=== PATIENT | female | born 1975 | race Caucasian/White ===

== ENCOUNTER 2021-04-17 14:33 | Emergency (ER) | payer OTHER ==
[2021-04-17 14:43] VITALS: BP 131/78; PULSE 72; RESP 18; TEMP 97.8
--- NOTE | 2021-04-17 15:27 | ED ---
General Adult HPI - General Chief complaint: Psychiatric Symptoms Stated complaint: mental health Time Seen by Provider: 04/17/21 14:50 Source: patient Mode of arrival: ambulatory Limitations: no limitations - History of Present Illness Initial comments: Is a 45-year-old female to history of anxiety and depression who presents emergency department for worsening stress, anxiety, depression. She states that she's had a lot of stressors in her life including going to [facility], and multiple relationship issues at home. She states that everything seems to be coming together causing her to be very stressed. She's been having worsening anxiety and depression. She does admit to hearing voices that are telling her that she is worthless and seemed to be making her feel worse. She denies any suicidal or homicidal ideations however. She is to be on medications including Prozac and Zyprexa however has not been taking these are she doesn't really follow up with anybody regarding her mental health. She came in today because she felt like she was in need of a psychiatric evaluation. Of note the patient does admit to methamphetamine use and states that her last use was a few days ago. Otherwise no drinking or other drug use. - Related Data Home Medications Medication Instructions Recorded Confirmed ALPRAZolam [Xanax] 0.25 mg PO TID PRN 03/03/15 07/28/15 ARIPiprazole [Abilify] 10 mg PO HS 03/03/15 07/28/15 Cyclobenzaprine [Flexeril] 10 mg PO TID 03/03/15 07/28/15 DULoxetine HCL 60 mg PO HS 03/03/15 07/28/15 HYDROcodone/APAP 7.5-325MG [[place] 1 each PO Q6HR PRN 03/03/15 07/28/15 7.5-325] Previous Rx's Medication Instructions Recorded Nicotine 14Mg/24Hr Patch [Habitrol] 1 patch TRANSDERM DAILY #42 patch 03/03/15 Allergies Allergy/AdvReac Type Severity Reaction Status Date / Time bee pollen Allergy Anaphylaxis Verified 04/17/21 14:43 bee venom protein (honey bee) Allergy Anaphylaxis Verified 04/17/21 14:43 Review of Systems ROS Statement: Those systems with pertinent positive or pertinent negative responses have been documented in the HPI. ROS Other: All systems not noted in ROS Statement are negative. Past Medical History Past Medical History: Hypertension Additional Past Medical History / Comment(s): chronic back pain, migraines, anxiety, depression History of Any Multi-Drug Resistant Organisms: None Reported Past Surgical History: Section, Cholecystectomy Additional Past Surgical History / Comment(s): C-SECT X2,ESSURE CONTROL- WORKED ONLY ON 1 SIDE Past Anesthesia/Blood Transfusion Reactions: No Reported Reaction Past Psychological History: Anxiety, Depression Smoking Status: Current every day smoker Past Alcohol Use History: None Reported Past Drug Use History: Methamphetamine General Exam - General Exam Comments Initial Comments: Constitutional: [Awake alert] [Appears comfortable] Head: [Normocephalic atraumatic] Eyes: [no conjunctival injection] [No scleral icterus] [EOMI] Neck: [No JVD] [Supple] Heart: [Regular rate rhythm] [normal S1-S2] [no murmurs] Lungs: [Clear to auscultation bilaterally] [No wheezing] [No rales] Abdomen: [Soft] [nondistended] [nontender] Extremities: [Non edematous] [DP pulses intact] [Radial pulses intact] Neuro: [A&Ox3] [No focal neurologic deficits] Psych: Depressed, anxious, no active suicidal ideation Limitations: no limitations Course Vital Signs 04/17/21 14:38 Temperature 97.8 F Pulse Rate 72 Respiratory 18 Rate Blood Pressure 131/78 O2 Sat by Pulse 97 Oximetry Medical Decision Making - Medical Decision Making Is a 45-year-old female who presents emergency department for depression and anxiety. The patient had no suicidal ideation. She was evaluated by mental health nurse here who gave her resources and gave her a safety plan for home. She advised her to follow up with outpatient mental health resources. The patient was given Ativan prior to leaving for her anxiety and she will be taken home by family. Told to return if she had any worsening or changing symptoms - Lab Data Lab Results 04/17/21 04/17/21 Range/Units 15:34 15:34 Urine HCG, Qual Not Detected (Not Detectd) Urine Opiates Screen Not Detected (NotDetected) Ur Oxycodone Screen Not Detected (NotDetected) Urine Methadone Screen Not Detected (NotDetected) Ur Propoxyphene Screen Not Detected (NotDetected) Ur Barbiturates Screen Not Detected (NotDetected) U Tricyclic Antidepress Not Detected (NotDetected) Ur Phencyclidine Scrn Not Detected (NotDetected) Ur Amphetamines Screen Not Detected (NotDetected) U Methamphetamines Scrn Detected H (NotDetected) U Benzodiazepines Scrn Not Detected (NotDetected) Urine Cocaine Screen Not Detected (NotDetected) U Marijuana (THC) Screen Detected H (NotDetected) Disposition Clinical Impression: Depression Disposition: HOME SELF-CARE Condition: Stable Instructions (If sedation given, give patient instructions): Depression (ED) Is patient prescribed a controlled substance at d/c from ED?: No Referrals: Primo Ferguson DO [Primary Care Provider] - 1-2 days
[2021-04-17 16:04] LABS: Amphetamine Screen,Urine Not Detected (NotDetected); Barbiturate Screen,Urine Not Detected (NotDetected); Benzodiazepines Screen,Urine Not Detected (NotDetected); Cocaine Screen,Urine Not Detected (NotDetected); Methadone Screen, Urine Not Detected (NotDetected); Opiate Screen,Urine Not Detected (NotDetected); Oxycodone Screen, Urine Not Detected (NotDetected); Phencyclidine Screen,Urine Not Detected (NotDetected); Tricyclic Antidepressant,Urine Not Detected (NotDetected); Urn Cannabinoid Scrn Detected (NotDetected)
[2021-04-17] MEDS ORDERED: LORazepam 1 MG TAB PO STA (17:27)
== END 2021-04-17 17:49 | disposition home or self-care (01) ==
LOC: EC 14:33
DX: F32.9 Major depressive disorder, single episode, unspecified (principal); F41.9 Anxiety disorder, unspecified; I10 Essential (primary) hypertension; F17.200 Nicotine dependence, unspecified, uncomplicated; Z91.030 Bee allergy status; Z79.899 Other long term (current) drug therapy
CPT/HCPCS: 80306; 81025; 99284

== ENCOUNTER 2021-04-27 20:05 | Emergency (ER) | payer OTHER ==
[2021-04-27 21:04] VITALS: TEMP 97.9
--- NOTE | 2021-04-27 22:19 | ED ---
General Adult HPI - General Source: patient, EMS Mode of arrival: EMS Limitations: no limitations <Domo Mckay - Last Filed: 04/27/21 23:53> <Marah Covarrubias - Last Filed: 04/28/21 00:59> <Terry Young - Last Filed: 04/28/21 01:12> - General Chief complaint: Psychiatric Symptoms Stated complaint: Mental Health Time Seen by Provider: 04/27/21 20:40 - History of Present Illness Initial comments: 45-year-old female with a past medical history of hypertension, chronic back pain, anxiety, depression presents to the emergency room for a chief complaint of depression. Patient reports that she recently caught her boyfriend cheating on her with her best friend. States that she found him in her bed. Patient reports that she is having trouble coping with this and has been more depressed lately. She denies any suicidal or homicidal thoughts. Patient took 1 trazodone at home to help with this. Patient denies taking any other medications.Patient has no other complaints at this time including shortness of breath, chest pain, abdominal pain, nausea or vomiting, headache, or visual changes. (Domo Mckay) - Related Data Home Medications Medication Instructions Recorded Confirmed ALPRAZolam [Xanax] 0.25 mg PO TID PRN 03/03/15 07/28/15 ARIPiprazole [Abilify] 10 mg PO HS 03/03/15 07/28/15 Cyclobenzaprine [Flexeril] 10 mg PO TID 03/03/15 07/28/15 DULoxetine HCL 60 mg PO HS 03/03/15 07/28/15 HYDROcodone/APAP 7.5-325MG [[place] 1 each PO Q6HR PRN 03/03/15 07/28/15 7.5-325] Previous Rx's Medication Instructions Recorded Nicotine 14Mg/24Hr Patch [Habitrol] 1 patch TRANSDERM DAILY #42 patch 03/03/15 Allergies Allergy/AdvReac Type Severity Reaction Status Date / Time bee pollen Allergy Anaphylaxis Verified 04/17/21 14:43 bee venom protein (honey bee) Allergy Anaphylaxis Verified 04/17/21 14:43 Review of Systems ROS Other: All systems not noted in ROS Statement are negative. <Domo Mckay - Last Filed: 04/27/21 23:53> ROS Other: All systems not noted in ROS Statement are negative. <Marah Covarrubias - Last Filed: 04/28/21 00:59> ROS Other: All systems not noted in ROS Statement are negative. <Terry Young - Last Filed: 04/28/21 01:12> ROS Statement: Those systems with pertinent positive or pertinent negative responses have been documented in the HPI. Past Medical History Past Medical History: Hypertension Additional Past Medical History / Comment(s): chronic back pain, migraines, anxiety, depression History of Any Multi-Drug Resistant Organisms: None Reported Past Surgical History: Section, Cholecystectomy Additional Past Surgical History / Comment(s): C-SECT X2,ESSURE CONTROL- WORKED ONLY ON 1 SIDE Past Anesthesia/Blood Transfusion Reactions: No Reported Reaction Past Psychological History: Anxiety, Depression Smoking Status: Current every day smoker Past Alcohol Use History: None Reported Past Drug Use History: Methamphetamine <Domo Mckay - Last Filed: 04/27/21 23:53> General Exam Limitations: no limitations General appearance: alert, in no apparent distress Head exam: Present: atraumatic, normocephalic, normal inspection Eye exam: Present: normal appearance ENT exam: Present: normal exam, mucous membranes moist Neck exam: Present: normal inspection. Absent: tenderness, meningismus, lymphadenopathy Respiratory exam: Present: normal lung sounds bilaterally. Absent: respiratory distress, wheezes, rales, rhonchi, stridor Cardiovascular Exam: Present: regular rate, normal rhythm, normal heart sounds. Absent: systolic murmur, diastolic murmur, rubs, gallop, clicks GI/Abdominal exam: Present: soft, normal bowel sounds. Absent: distended, tenderness, guarding, rebound, rigid Neurological exam: Absent: alert, oriented X3 Psychiatric exam: Present: normal affect, normal mood <Domo Mckay - Last Filed: 04/27/21 23:53> Course Vital Signs 04/27/21 20:57 Temperature 97.9 F Pulse Rate 94 Respiratory 18 Rate Blood Pressure 112/76 O2 Sat by Pulse 100 Oximetry Medical Decision Making <Domo Mckay - Last Filed: 04/27/21 23:53> <Terry Young - Last Filed: 04/28/21 01:12> - Medical Decision Making Patient was medically cleared for psychiatric eval. EPS notified. Care signed out to Marah at 0000 pending EPS eval (Domo Mckay) 45 female seen and evaluated by EPS, patient deemed stable for discharge home (Terry Young) Disposition <Domo Mckay - Last Filed: 04/27/21 23:53> Is patient prescribed a controlled substance at d/c from ED?: No Time of Disposition: 01:00 <Marah Covarrubias - Last Filed: 04/28/21 00:59> <Terry Young - Last Filed: 04/28/21 01:12> Clinical Impression: Acute stress reaction, Suicidal ideation Disposition: HOME SELF-CARE Condition: Good Instructions (If sedation given, give patient instructions): Stress (ED), Suicide Prevention (ED) Additional Instructions: Follow-up with outpatient mental services as discussed. Return to the emergency department immediately for any new, worsening, or concerning symptoms. Referrals: Primo Ferguson DO [Primary Care Provider] - 1-2 days
[2021-04-28] MEDS ORDERED: LORazepam 1 MG TAB PO STA (00:59)
[2021-04-28 01:20] VITALS: BP 126/80; PULSE 100; RESP 14
== END 2021-04-28 01:40 | disposition home or self-care (01) ==
LOC: EC 20:05
DX: F43.0 Acute stress reaction (principal); R45.851 Suicidal ideations; F32.9 Major depressive disorder, single episode, unspecified; I10 Essential (primary) hypertension; F41.9 Anxiety disorder, unspecified; F15.90 Other stimulant use, unspecified, uncomplicated; F17.200 Nicotine dependence, unspecified, uncomplicated; G43.909 Migraine, unspecified, not intractable, without status migrainosus
CPT/HCPCS: 99283

== ENCOUNTER 2021-07-31 13:09 | Emergency (ER) | payer OTHER ==
[2021-07-31 13:56] VITALS: BP 172/85; PULSE 93; RESP 18; TEMP 97.8
[2021-07-31] MEDS ORDERED: DIPH,PERTUS(ACELL)TETVAC-LF 0.5 ML VIAL IM ONE (14:54)
[2021-07-31] MEDS ORDERED: TOPICAL SKIN ADHESIVE 1 EACH AMP TOPICAL ONE (14:56)
[2021-07-31] MEDS ORDERED: ACETAMINOPHEN TAB 325 MG TAB PO STA (15:00)
--- NOTE | 2021-07-31 15:00 | ED ---
General Adult HPI - General Chief complaint: Wound/Laceration Stated complaint: lac between eyes Time Seen by Provider: 07/31/21 14:52 Source: patient, RN notes reviewed Mode of arrival: ambulatory Limitations: no limitations - History of Present Illness Initial comments: This is a well-appearing 46-year-old white female that presents to the emergency room with complaints of laceration to her forehead [place] the dock and hitting her head. She denies any loss of consciousness. She states the wound did bleed. Bleeding is controlled at this time. She states her tetanus shot is not up-to-date. She denies any drug use but does state that she has a smoker. -: hour(s) (2) Location: face (forehead) Severity scale (1-10): 5 Quality: aching Consistency: constant Worsens with: other (palpation) Associated Symptoms: denies other symptoms Treatments Prior to Arrival: none - Related Data Home Medications Medication Instructions Recorded Confirmed ALPRAZolam [Xanax] 0.25 mg PO TID PRN 03/03/15 07/28/15 ARIPiprazole [Abilify] 10 mg PO HS 03/03/15 07/28/15 Cyclobenzaprine [Flexeril] 10 mg PO TID 03/03/15 07/28/15 DULoxetine HCL 60 mg PO HS 03/03/15 07/28/15 HYDROcodone/APAP 7.5-325MG [[place] 1 each PO Q6HR PRN 03/03/15 07/28/15 7.5-325] Previous Rx's Medication Instructions Recorded Nicotine 14Mg/24Hr Patch [Habitrol] 1 patch TRANSDERM DAILY #42 patch 03/03/15 Cephalexin [Keflex] 500 mg PO Q6HR 7 Days #28 cap 07/31/21 Allergies Allergy/AdvReac Type Severity Reaction Status Date / Time bee pollen Allergy Anaphylaxis Verified 07/31/21 13:56 bee venom protein (honey bee) Allergy Anaphylaxis Verified 07/31/21 13:56 Review of Systems ROS Statement: Those systems with pertinent positive or pertinent negative responses have been documented in the HPI. ROS Other: All systems not noted in ROS Statement are negative. Past Medical History Past Medical History: Hypertension Additional Past Medical History / Comment(s): chronic back pain, migraines, anxiety, depression History of Any Multi-Drug Resistant Organisms: None Reported Past Surgical History: Section, Cholecystectomy Additional Past Surgical History / Comment(s): C-SECT X2,ESSURE CONTROL- WORKED ONLY ON 1 SIDE Past Anesthesia/Blood Transfusion Reactions: No Reported Reaction Past Psychological History: Anxiety, Depression, Schizophrenia Smoking Status: Current every day smoker Past Alcohol Use History: Heavy Past Drug Use History: Methamphetamine General Exam Limitations: no limitations General appearance: alert, in no apparent distress Head exam: Present: normocephalic, normal inspection, other (Y shaped Laceration to the center of her forehead ) Eye exam: Present: normal appearance, PERRL, EOMI. Absent: scleral icterus, conjunctival injection, periorbital swelling ENT exam: Present: normal exam, mucous membranes moist Neck exam: Present: normal inspection, full ROM. Absent: tenderness, meningismus, lymphadenopathy Respiratory exam: Present: normal lung sounds bilaterally. Absent: respiratory distress, wheezes, rales, rhonchi, stridor Cardiovascular Exam: Present: regular rate, normal rhythm, normal heart sounds. Absent: systolic murmur, diastolic murmur, rubs, gallop, clicks GI/Abdominal exam: Present: soft, normal bowel sounds. Absent: distended, tenderness, guarding, rebound, rigid Neurological exam: Present: alert, oriented X3, CN II-XII intact Expanded Patient oriented to: Present: person, place, time Speech: Present: fluid speech Eye Response: (4) open spontaneously Motor Response: (6) obeys commands Verbal Response: (5) oriented Terrence Total: 15 Psychiatric exam: Present: normal affect, normal mood Skin exam: Present: warm, dry, intact, normal color. Absent: rash, cyanosis, diaphoretic, petechiae, pallor Course Vital Signs 07/31/21 13:53 Temperature 97.8 F Pulse Rate 93 Respiratory 18 Rate Blood Pressure 172/85 O2 Sat by Pulse 99 Oximetry Medical Decision Making - Medical Decision Making Wound was well approximated and closed with dermal glue. Patient's tetanus shot was updated at this visit. She was given a prescription for Keflex for prophylaxis. Dr. Blanco at bedside to evaluate patient. Patient is directed to follow up with her primary care doctor in 1 week and return if pain or worsening symptoms including signs of infection. Disposition Clinical Impression: Laceration Disposition: HOME SELF-CARE Condition: Good Instructions (If sedation given, give patient instructions): Laceration (ED), Skin Adhesive Care (ED) Additional Instructions: Keep wound clean and dry. Do not put any lotions or ointments on site. Follow- up with your primary care doctor in 1 week. Return to the emergency room with any new or worsening symptoms including signs of infection, fever, drainage or pain. Prescriptions: Cephalexin [Keflex] 500 mg PO Q6HR 7 Days #28 cap Is patient prescribed a controlled substance at d/c from ED?: No Referrals: Primo Ferguson DO [Primary Care Provider] - 1-2 days Time of Disposition: 15:32
== END 2021-07-31 15:58 | disposition home or self-care (01) ==
LOC: EC 13:09
DX: S01.81XA Laceration without foreign body of other part of head, initial encounter (principal); Z23 Encounter for immunization; I10 Essential (primary) hypertension; F17.200 Nicotine dependence, unspecified, uncomplicated; Z90.49 Acquired absence of other specified parts of digestive tract; F41.9 Anxiety disorder, unspecified; F32.9 Major depressive disorder, single episode, unspecified; F15.90 Other stimulant use, unspecified, uncomplicated; W18.09XA Striking against other object with subsequent fall, initial encounter; Y92.62 Dock or shipyard as the place of occurrence of the external cause
CPT/HCPCS: 90471; 90715; 99283

== ENCOUNTER 2022-03-08 03:13 | Emergency (ER) | payer OTHER ==
[2022-03-08 03:17] VITALS: TEMP 98.8
[2022-03-08] MEDS ORDERED: IBUPROFEN 600 MG TAB PO STA (03:42)
[2022-03-08] MEDS ORDERED: SULFAMETHOX-TMP 800-160MG 1 EACH TAB PO STA (03:43)
--- NOTE | 2022-03-08 03:47 | ED ---
General Adult HPI - General Source: patient, police Mode of arrival: ambulatory - History of Present Illness -: days(s) Location: left, right, lower extremity Radiation: non-radiation Quality: aching Consistency: constant Improves with: none Worsens with: none Associated Symptoms: denies other symptoms <Moo Garner - Last Filed: 03/08/22 03:44> <Harjeet Avendano Flora - Last Filed: 03/08/22 08:04> - General Chief complaint: Medical Clearance Stated complaint: residential clearance Time Seen by Provider: 03/08/22 03:34 - History of Present Illness Initial comments: This patient is a 46-year-old woman who presents to have evaluation for bilateral lower leg and foot swelling. Patient states is been going on and has been getting progressively worse over the past few days. The patient has not noted fever or chills. No chest pain or dyspnea. No change in urination. She denies previous history of edema. (Moo Garner) - Related Data Home Medications Medication Instructions Recorded Confirmed ALPRAZolam [Xanax] 0.25 mg PO TID PRN 03/03/15 07/28/15 ARIPiprazole [Abilify] 10 mg PO HS 03/03/15 07/28/15 Cyclobenzaprine [Flexeril] 10 mg PO TID 03/03/15 07/28/15 DULoxetine HCL 60 mg PO HS 03/03/15 07/28/15 HYDROcodone/APAP 7.5-325MG [[place] 1 each PO Q6HR PRN 03/03/15 07/28/15 7.5-325] Previous Rx's Medication Instructions Recorded Nicotine 14Mg/24Hr Patch [Habitrol] 1 patch TRANSDERM DAILY #42 patch 03/03/15 Cephalexin [Keflex] 500 mg PO Q6HR 7 Days #28 cap 07/31/21 Cephalexin [Keflex] 500 mg PO QID 10 Days #40 cap 03/08/22 Sulfamethox-Tmp 800-160Mg [Bactrim 1 tab PO Q12HR #28 tab 03/08/22 DS 800-160 mg] Allergies Allergy/AdvReac Type Severity Reaction Status Date / Time bee pollen Allergy Anaphylaxis Verified 03/08/22 03:17 bee venom protein (honey bee) Allergy Anaphylaxis Verified 03/08/22 03:17 Review of Systems ROS Other: All systems not noted in ROS Statement are negative. Constitutional: Denies: fever, chills, weakness Respiratory: Denies: cough, dyspnea Cardiovascular: Reports: edema. Denies: chest pain, palpitations, orthopnea Gastrointestinal: Denies: abdominal pain Musculoskeletal: Denies: back pain Skin: Denies: rash Neurological: Denies: headache, weakness, numbness <Moo Garner - Last Filed: 03/08/22 03:44> ROS Other: All systems not noted in ROS Statement are negative. <Harjeet Avendano Floar - Last Filed: 03/08/22 08:04> ROS Statement: Those systems with pertinent positive or pertinent negative responses have been documented in the HPI. Past Medical History Past Medical History: Hypertension Additional Past Medical History / Comment(s): chronic back pain, migraines, anxiety, depression History of Any Multi-Drug Resistant Organisms: None Reported Past Surgical History: Section, Cholecystectomy Additional Past Surgical History / Comment(s): C-SECT X2,ESSURE CONTROL-WORKED ONLY ON 1 SIDE Past Anesthesia/Blood Transfusion Reactions: No Reported Reaction Past Psychological History: Anxiety, Depression, Schizophrenia Smoking Status: Current every day smoker Past Alcohol Use History: Heavy Past Drug Use History: Methamphetamine <Moo Garner - Last Filed: 03/08/22 03:44> General Exam General appearance: alert, in no apparent distress Head exam: Present: atraumatic, normocephalic Eye exam: Present: normal appearance. Absent: scleral icterus, conjunctival injection Respiratory exam: Present: normal lung sounds bilaterally. Absent: respiratory distress, wheezes, rales, rhonchi, stridor Cardiovascular Exam: Present: regular rate, normal rhythm, normal heart sounds. Absent: systolic murmur, diastolic murmur, rubs, gallop GI/Abdominal exam: Present: soft. Absent: distended, tenderness, guarding, rebound Extremities exam: Present: normal capillary refill, pedal edema. Absent: normal inspection, calf tenderness Neurological exam: Absent: motor sensory deficit Skin exam: Present: warm, dry, intact, normal color, erythema <Moo Garner - Last Filed: 03/08/22 03:44> Course Vital Signs 03/08/22 03/08/22 03:15 06:16 Temperature 98.8 F Pulse Rate 95 84 Respiratory 19 16 Rate Blood Pressure 154/86 132/76 O2 Sat by Pulse 100 98 Oximetry Medical Decision Making - Lab Data Result diagrams: 03/08/22 03:48 03/08/22 03:48 <Harjeet Avendano - Last Filed: 03/08/22 08:04> - Medical Decision Making Sign out on this patient awaiting ultrasound report for bilateral lower extremity edema. Patient has erythema and edema to the bilateral lower extremities. Ultrasound is performed which is negative for DVT, shows a superficial thrombus in the right popliteal area. Patient is afebrile. She does have a leukocytosis. I feel this patient is appropriate for oral antibiotics at this time. She's given strict return parameters. (Harjeet Avendano) - Lab Data Lab Results 03/08/22 03/08/22 03/08/22 Range/Units 03:48 03:48 03:48 WBC 8.3 (3.8-10.6) k/uL RBC 4.70 (3.80-5.40) m/uL Hgb 10.8 L (11.4-16.0) gm/dL Hct 35.4 (34.0-46.0) % MCV 75.3 L (80.0-100.0) fL MCH 23.0 L (25.0-35.0) pg MCHC 30.5 L (31.0-37.0) g/dL RDW 16.2 H (11.5-15.5) % Plt Count 273 (150-450) k/uL MPV 9.3 Neutrophils % 72 % Lymphocytes % 17 % Monocytes % 8 % Eosinophils % 1 % Basophils % 1 % Neutrophils # 6.0 (1.3-7.7) k/uL Lymphocytes # 1.4 (1.0-4.8) k/uL Monocytes # 0.6 (0-1.0) k/uL Eosinophils # 0.1 (0-0.7) k/uL Basophils # 0.1 (0-0.2) k/uL Hypochromasia Slight Anisocytosis Slight Microcytosis Slight D-Dimer 3.19 H (<0.60) mg/L FEU Sodium 131 L (137-145) mmol/L Potassium 3.8 (3.5-5.1) mmol/L Chloride 97 L (98-107) mmol/L Carbon Dioxide 27 (22-30) mmol/L Anion Gap 7 mmol/L BUN 10 (7-17) mg/dL Creatinine 0.53 (0.52-1.04) mg/dL Est GFR (CKD-EPI)AfAm >90 (>60 ml/min/1.73 sqM) Est GFR (CKD-EPI)NonAf >90 (>60 ml/min/1.73 sqM) Glucose 104 H (74-99) mg/dL Calcium 8.8 (8.4-10.2) mg/dL Total Bilirubin 0.8 (0.2-1.3) mg/dL AST 44 H (14-36) U/L ALT 46 H (4-34) U/L Alkaline Phosphatase 105 (38-126) U/L NT-Pro-B Natriuret Pep pg/mL Total Protein 7.4 (6.3-8.2) g/dL Albumin 3.7 (3.5-5.0) g/dL 03/08/22 Range/Units 03:48 WBC (3.8-10.6) k/uL RBC (3.80-5.40) m/uL Hgb (11.4-16.0) gm/dL Hct (34.0-46.0) % MCV (80.0-100.0) fL MCH (25.0-35.0) pg MCHC (31.0-37.0) g/dL RDW (11.5-15.5) % Plt Count (150-450) k/uL MPV Neutrophils % % Lymphocytes % % Monocytes % % Eosinophils % % Basophils % % Neutrophils # (1.3-7.7) k/uL Lymphocytes # (1.0-4.8) k/uL Monocytes # (0-1.0) k/uL Eosinophils # (0-0.7) k/uL Basophils # (0-0.2) k/uL Hypochromasia Anisocytosis Microcytosis D-Dimer (<0.60) mg/L FEU Sodium (137-145) mmol/L Potassium (3.5-5.1) mmol/L Chloride (98-107) mmol/L Carbon Dioxide (22-30) mmol/L Anion Gap mmol/L BUN (7-17) mg/dL Creatinine (0.52-1.04) mg/dL Est GFR (CKD-EPI)AfAm (>60 ml/min/1.73 sqM) Est GFR (CKD-EPI)NonAf (>60 ml/min/1.73 sqM) Glucose (74-99) mg/dL Calcium (8.4-10.2) mg/dL Total Bilirubin (0.2-1.3) mg/dL AST (14-36) U/L ALT (4-34) U/L Alkaline Phosphatase (38-126) U/L NT-Pro-B Natriuret Pep 55 pg/mL Total Protein (6.3-8.2) g/dL Albumin (3.5-5.0) g/dL Disposition <Moo Garner - Last Filed: 03/08/22 03:44> Is patient prescribed a controlled substance at d/c from ED?: No Time of Disposition: 08:04 <Harjeet Avendano - Last Filed: 03/08/22 08:04> Clinical Impression: Bilateral lower leg cellulitis Disposition: HOME SELF-CARE Condition: Fair Instructions (If sedation given, give patient instructions): Cellulitis (ED) Prescriptions: Sulfamethox-Tmp 800-160Mg [Bactrim DS 800-160 mg] 1 tab PO Q12HR #28 tab Cephalexin [Keflex] 500 mg PO QID 10 Days #40 cap Referrals: Primo Ferguson DO [Primary Care Provider] - 1-2 days
[2022-03-08 04:08] LABS: Anisocytosis Slight; Basophils # (A) 0.1 k/uL (0-0.2); Basophils % (A) 1 %; Eosinophils # (A) 0.1 k/uL (0-0.7); Eosinophils % (A) 1 %; HCT 35.4 % (34.0-46.0); HGB 10.8 gm/dL (11.4-16.0); Hypochromasia Slight; Lymphocytes # (A) 1.4 k/uL (1.0-4.8); Lymphocytes % (A) 17 %; MCHC 30.5 g/dL (31.0-37.0); MCV 75.3 fL (80.0-100.0); Mean Platelet Volume 9.3; Microcytosis Slight; Monocytes # (A) 0.6 k/uL (0-1.0); Monocytes % (A) 8 %; Neutrophils % (A) 72 %; Platelet Count 273 k/uL (150-450); RDW 16.2 % (11.5-15.5); WBC 8.3 k/uL (3.8-10.6)
[2022-03-08 04:26] LABS: ALT 46 U/L (4-34); AST 44 U/L (14-36); African American GFR (CKD) >90 (>60 ml/min/1.73 sqM); Albumin 3.7 g/dL (3.5-5.0); Alkaline Phosphatase 105 U/L (38-126); Anion Gap 7 mmol/L; Blood Urea Nitrogen 10 mg/dL (7-17); Calcium 8.8 mg/dL (8.4-10.2); Carbon Dioxide 27 mmol/L (22-30); Chloride 97 mmol/L (98-107); Glucose 104 mg/dL (74-99); Non-African American GFR(CKD) >90 (>60 ml/min/1.73 sqM); Potassium 3.8 mmol/L (3.5-5.1); Sodium 131 mmol/L (137-145); Total Bilirubin 0.8 mg/dL (0.2-1.3); Total Protein 7.4 g/dL (6.3-8.2)
[2022-03-08 06:17] VITALS: BP 132/76; PULSE 84; RESP 16
--- NOTE | 2022-03-08 07:50 | US ---
EXAMINATION TYPE: US venous doppler duplex LE DATE OF EXAM: 03/08/2022 7:41 AM COMPARISON: NONE CLINICAL HISTORY: Pain, possible DVT. Pain. No hx of DVT. SIDE PERFORMED: Bilateral TECHNIQUE: The lower extremity deep venous system is examined utilizing real time linear array sonog chad with graded compression, doppler sonography and color-flow sonography. VESSELS IMAGED: Common Femoral Vein Deep Femoral Vein Greater Saphenous Vein * Femoral Vein Popliteal Vein Small Saphenous Vein * Proximal Calf Veins (* superficial vessels) Right Leg: No evidence of DVT in veins imaged. Left Leg: Limited due to edema. There appear to be internal echoes within a superficial vein within the anterior popliteal area. This vessel appears to compress incompletely and there is color defect a long vessel coyne. No evidence of DVT at this time within veins imaged. IMPRESSION: 1. Right lower extremity ultrasound negative for deep venous thrombosis. 2. Left lower extremity ultrasound negative for deep venous thrombosis. 3. Note is made of some partial superficial venous thrombosis at the level of the superficial poplite al level.
[2022-03-08] MEDS ORDERED: CEPHALEXIN 500 MG CAP PO STA (08:02)
== END 2022-03-08 08:39 | disposition home or self-care (01) ==
LOC: EC 03:13
DX: L03.116 Cellulitis of left lower limb (principal); L03.115 Cellulitis of right lower limb; I10 Essential (primary) hypertension; F17.200 Nicotine dependence, unspecified, uncomplicated; Z91.030 Bee allergy status
CPT/HCPCS: 36415; 80053; 83880; 85025; 85379; 87040; 93970; 99284

== ENCOUNTER 2022-03-10 14:52 | Emergency (ER) | payer OTHER ==
[2022-03-10 14:56] VITALS: BP 140/81; PULSE 60; RESP 18; TEMP 98.3
[2022-03-10] MEDS ORDERED: LIDOCAINE 1%-EPI 1:100,000 20 ML VIAL SQ STA (17:06)
[2022-03-10] MEDS ORDERED: KETOROLAC 15 MG/ML 1 ML VIAL IM STA ×2 (17:09→19:16)
--- NOTE | 2022-03-10 18:55 | US ---
EXAMINATION TYPE: US transvaginal DATE OF EXAM: 03/10/2022 COMPARISON: None CLINICAL HISTORY: vaginal bleeding. 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 Previous c-sections. TECHNIQUE: Transvaginal (TV). Date of LMP: Unknown EXAM MEASUREMENTS: Uterus: 9.8 x 5.8 x 4.7 cm Endometrial Stripe: 0.5 cm 1. Uterus: Anteverted Csection area seen. 2. Endometrium: wnl 3. Right Ovary: Obscured by overlying bowel gas 4. Left Ovary: Obscured by overlying bowel gas 5. Bilateral Adnexa: wnl 6. Posterior cul-de-sac: no free fluid Cervix-nabothian cysts present. Heterogenous signal is seen near the external cervical os. IMPRESSION: 1. No finding to explain patient's bleeding. 2. Heterogenous area of the cervix near the external cervical os correlate with physical exam.
[2022-03-10] MEDS ORDERED: MORPHINE SULFATE 4 MG/ML SYRINGE IVP STA (19:10)
--- NOTE | 2022-03-10 19:10 | ED ---
Abdominal Pain HPI - General Chief Complaint: Abdominal Pain Stated Complaint: Internal Bleeding Time Seen by Provider: 03/10/22 16:22 Source: patient Mode of arrival: ambulatory Limitations: no limitations - History of Present Illness Initial Comments: Patient is a 46-year-old female who presents to the emergency department with a chief complaint of pelvic pain and vaginal bleeding. Patient resides at [facility] and was caught with a metal pill bottle in the vagina on Sunday. Patient states she took the pill bottle out which resulted in vaginal bleeding and pelvic pain. Patient states she has went through about 6 pads and 6 pairs of care home pants a day. She denies fever, chills, and concern for sexual transmitted infections. Patient states she has normal menstrual cycles monthly. Her last menstruation was mid February. Patient states her menstrual period should occur late next week. Of note, patient was recently evaluated in the emergency department for bilateral lower extremity swelling. At this time ultrasound showed a superficial thrombus in the right popliteal area, no DVT. Patient was diagnosed with cellulitis and discharged with oral Bactrim and Keflex which she states she has been taking as directed. - Related Data Home Medications Medication Instructions Recorded Confirmed Acetaminophen Tab [Tylenol] 650 mg PO Q8H PRN 03/10/22 03/10/22 Cephalexin [Keflex] 1,000 mg PO BID 03/10/22 03/10/22 Dicyclomine [Bentyl] 20 mg PO Q8H PRN 03/10/22 03/10/22 Loperamide [Imodium] 2 mg PO Q8H PRN 03/10/22 03/10/22 Promethazine [Phenergan] 25 mg PO Q8H PRN 03/10/22 03/10/22 cloNIDine HCL [Catapres] 0.1 mg PO Q8H PRN 03/10/22 03/10/22 hydrOXYzine HCL [Atarax] 50 mg PO Q8H PRN 03/10/22 03/10/22 Previous Rx's Medication Instructions Recorded Sulfamethox-Tmp 800-160Mg [Bactrim 1 tab PO Q12HR #28 tab 03/08/22 DS 800-160 mg] Allergies Allergy/AdvReac Type Severity Reaction Status Date / Time bee pollen Allergy Anaphylaxis Verified 03/10/22 17:23 bee venom protein (honey bee) Allergy Anaphylaxis Verified 03/10/22 17:23 Review of Systems ROS Statement: Those systems with pertinent positive or pertinent negative responses have been documented in the HPI. ROS Other: All systems not noted in ROS Statement are negative. Past Medical History Past Medical History: Hypertension Additional Past Medical History / Comment(s): chronic back pain, migraines, anxiety, depression History of Any Multi-Drug Resistant Organisms: None Reported Past Surgical History: Section, Cholecystectomy Additional Past Surgical History / Comment(s): C-SECT X2,ESSURE CONTROL- WORKED ONLY ON 1 SIDE Past Anesthesia/Blood Transfusion Reactions: No Reported Reaction Past Psychological History: Anxiety, Depression, Schizophrenia Smoking Status: Current every day smoker Past Alcohol Use History: Heavy Past Drug Use History: Heroin, Methamphetamine General Exam Limitations: no limitations General appearance: alert, in no apparent distress Head exam: Present: atraumatic, normocephalic, normal inspection Eye exam: Present: normal appearance, PERRL, EOMI. Absent: scleral icterus, conjunctival injection, periorbital swelling Respiratory exam: Present: normal lung sounds bilaterally. Absent: respiratory distress, wheezes, rales, rhonchi, stridor Cardiovascular Exam: Present: regular rate, normal rhythm, normal heart sounds. Absent: systolic murmur, diastolic murmur, rubs, gallop, clicks GI/Abdominal exam: Present: soft, tenderness (Pelvic bilateral), normal bowel sounds. Absent: distended, guarding, rebound, rigid External exam: Present: normal external exam Speculum exam: Present: other (Minimal bleeding from cervical os). Absent: laceration Extremities exam: Present: normal inspection, full ROM, normal capillary refill. Absent: tenderness, pedal edema, calf tenderness Back exam: Absent: CVA tenderness (R), CVA tenderness (L) Neurological exam: Present: alert, oriented X3, CN II-XII intact Psychiatric exam: Present: normal affect, normal mood Skin exam: Present: warm, dry, intact, normal color. Absent: rash Course Vital Signs 03/10/22 14:53 Temperature 98.3 F Pulse Rate 60 Respiratory 18 Rate Blood Pressure 140/81 O2 Sat by Pulse 100 Oximetry Medical Decision Making - Medical Decision Making This is a 46-year-old female who presents with vaginal bleeding and pelvic pain after removing a metal pill bottle from her vagina. Thorough history and examination were performed. Patient is well-appearing and in no apparent distress. She is hemodynamically stable. I did perform a speculum exam which revealed a minimally bleeding cervical os. There were no lacerations or abrasions within the vaginal wall. Transvaginal ultrasound showed no finding to explain patient's bleeding. Pain controlled with Toradol. It appears the patient may be experiencing perimenopausal vaginal bleeding. Patient will be discharged with instruction to follow up with [facility]. I did put this in her discharge instructions and talked to the cop breaker at bedside myself. Return parameters discussed. Patient and cop breaker verbalize understanding and are agreeable to plan. Of note regarding patient's previous diagnosis of bilateral lower extremity cellulitis on 03/08/22, there is currently no swelling, erythema, or tenderness of the bilateral lower extremities. Dr. Rushing is my attending. Disposition Clinical Impression: Foreign body, Vaginal bleeding, Pelvic cramping Disposition: OTHER INSTITUTION NOT DEFINED Instructions (If sedation given, give patient instructions): Abnormal (Dysfunctional) Uterine Bleeding (ED) Additional Instructions: Please give patient an anti-inflammatory such as Motrin or Advil as needed for pain. Patient needs to follow up with an [facility] for further monitoring of her vaginal bleeding. Please return to the emergency department if patient experiences new, concerning, or worsening symptoms. Referrals: Primo Ferguson DO [Primary Care Provider] - 1-2 days Joel Sawyer MD [STAFF PHYSICIAN] - 1-2 days Time of Disposition: 19:10 - Out of Hospital Transfer - Req. Specs Out of Hospital Transfer - Requested Specifics: Other Non-Acute ([facility])
[2022-03-10] MEDS ORDERED: KETOROLAC 15 MG/ML 1 ML VIAL IVP STA (19:14)
== END 2022-03-10 20:20 | disposition other institution (70) ==
LOC: EC 14:52
DX: R10.2 Pelvic and perineal pain (principal); N93.9 Abnormal uterine and vaginal bleeding, unspecified; F17.200 Nicotine dependence, unspecified, uncomplicated; I10 Essential (primary) hypertension; Z79.899 Other long term (current) drug therapy; Z91.030 Bee allergy status
CPT/HCPCS: 76830; 99285; 96372; J1885